=== PATIENT | female | born 1995 | race Hispanic/Latino ===

== ENCOUNTER 2017-06-03 19:21 | Emergency (ER) | payer OTHER ==
[~2017-06-03] VITALS: Ht 160 cm; Wt 68.0 kg
[~2017-06-03 19:21] MED LIST: OMEPRAZOLE40 MG PO; TYLENOL WITH C1 EACH PO
== END 2017-06-03 20:40 | disposition short-term general hospital (02) ==
LOC: ER 19:21
DX: R10.9 Unspecified abdominal pain (principal); Z53.9 Procedure and treatment not carried out, unspecified reason